=== PATIENT | female | born 1975 | race Caucasian/White ===

== ENCOUNTER 2022-12-07 17:11 | Emergency (ER) | payer OTHER, SELFPAY ==
[2022-12-07 17:23] VITALS: BP 134/63; PULSE 86; RESP 22; TEMP 36.7; O2SAT 100; BMI 33.9
[2022-12-07 17:56] LABS: Add Manual Diff / Slide Review NO; Basophils Absolute Auto 100 /uL (0-100); Basophils Percent Auto 1.2 % (0-2); Eosinophils Absolute Auto 100 /uL (0-450); Eosinophils Percent Auto 1.2 % (2-4); Hematocrit 24.3 % (36-46); Hemoglobin 7.3 g/dL (12.0-16.0); Lymphocytes Absolute Auto 1600 /uL (1100-4500); Lymphocytes Percent Auto 16.1 % (25-40); Mean Corpuscular HGB Conc 30.1 % (30-36); Mean Corpuscular Hemoglobin 18.1 PG (26-34); Mean Corpuscular Volume 60.2 fL (80-100); Monocytes Absolute Auto 800 /uL (0-900); Monocytes Percent Auto 7.7 % (3-14); Neutrophils Absolute Auto 7300 /uL (1500-7000); Neutrophils Percent Auto 73.8 % (50-75); Platelet Count 289 X10^3/uL (150-400); Red Blood Cell Count 4.04 X10^6/uL (4.0-5.2); Red Cell Distribution Width 18.5 % (11.6-14.8); White Blood Cell Count 9.8 X10^3/uL (4.5-11.0)
[2022-12-07 18:06] LABS: Prothrombin Time 11.7 SECONDS (10.1-12.7)
[2022-12-07 18:09] LABS: PTT Partial Thromboplastin Tim 27 SECONDS (26-36)
[2022-12-07 18:11] LABS: Alanine Aminotransferase 26 IU/L (<35); Albumin 4.2 g/dL (3.5-5.0); Albumin Globulin Ratio 1.4 (1.0-2.8); Alkaline Phosphatase 53 U/L (38-126); Aspartate Aminotransferase 21 IU/L (14-36); BUN Creatinine Ratio 14.5 (6-22); Bilirubin Total 0.3 mg/dL (0.2-1.3); Blood Urea Nitrogen 12 mg/dL (7-17); Calcium 8.4 mg/dL (8.4-10.2); Carbon Dioxide 23 mmol/L (22-32); Chloride 104 mmol/L (98-107); Estimated Glomerular Filt Rate > 60 mL/min (>60); Globulin 3.1 g/dL (1.7-4.1); Glucose 96 mg/dL (70-100); HEMOLYSIS < 15 (0-50); Potassium 3.9 mmol/L (3.4-5.1); Sodium 136 mmol/L (137-145); Total Protein 7.3 g/dL (6.3-8.2)
[2022-12-07 18:27] LABS: Hypochromasia 2+; Microcytosis 2+; RBC Morphology S
[2022-12-07 18:51] VITALS: BP 130/71
[2022-12-07] MEDS: PANTOPRAZOLE 40 MG VIAL 80 MG IV (18:52)
[2022-12-07 19:00] VITALS: BP 119/64; PULSE 77; O2SAT 100
[2022-12-07 19:30] VITALS: BP 119/71; PULSE 84; O2SAT 100
[2022-12-07 19:46] VITALS: BP 122/68; PULSE 76; O2SAT 100
[2022-12-07 19:59] LABS: Hematocrit 23.9 % (36-46); Hemoglobin 7.1 g/dL (12.0-16.0)
[2022-12-07 20:00] VITALS: BP 121/72; PULSE 82; O2SAT 100
--- NOTE | 2022-12-07 20:20 | ED_ITS ---
HPI - Recheck/Abnormal Lab/Rx General Chief Complaint: Recheck/Abnormal Lab/Rx Stated Complaint: low h/h, hgb 7 Time Seen by Provider: 12/07/22 18:09 Source: patient Mode of arrival: Ambulatory Limitations: no limitations History of Present Illness HPI narrative: Patient is a 47-year-old female. Was sent here from her primary doctor's office for evaluation of anemia. Patient states she has had anemia in the past. Has had low iron in the past. Has taken iron supplements but does not currently taking any supplements. She states she has had very heavy menstrual cycles. They have become more frequent recently. She is not on any sort of control. She did recently have an upper endoscopy and was diagnosed with gastroesophageal reflux disease. She does not take any blood thinners. Has not had any blood in her stool. She is had a colonoscopy in the past about a year ago. She states she is not having any shortness of breath on exertion. No fatigue. No chest pain. No shortness of breath. No abdominal pain. Related Data Previous Rx's Medication Instructions Recorded docusate sodium 100 mg capsule 100 mg PO DAILY #30 caps 12/07/22 (Colace) ferrous sulfate 325 mg (65 mg 325 mg PO DAILY #30 tabs 12/07/22 iron) tablet (FeroSul) Allergies Allergy/AdvReac Type Severity Reaction Status Date / Time No Known Drug Allergies Allergy Verified 12/07/22 17:46 Review of Systems Review of Systems ROS Unobtainable: All systems reviewed & are unremarkable except as noted in HPI and below Patient History Social History Smoking Status: Never smoker Smoking Status: Never smoker alcohol intake frequency: a few times a month Alcohol type: hard liquor Substance Use Type: does not use Exam Initial Vital Signs Initial Vital Signs: Vital Signs Temperature 98.1 F 12/07/22 17:23 Pulse Rate 86 12/07/22 17:23 Respiratory Rate 22 12/07/22 17:23 Blood Pressure 134/63 12/07/22 17:23 Pulse Oximetry 100 12/07/22 17:23 Oxygen Delivery Method Room Air 12/07/22 17:23 Resp Effort & Inspection: normal respiratory effort Cardio Rate: regular rate GI Inspection: normal to inspection and non-distended Palpation: soft and No tender Neuro General: patient alert, patient awake and moves all extremities Speech: speech normal Extrem General: normal to inspection and capillary refill normal Course Orders Ordered: ED Orders 12/07/22 17:35 Complete Blood Count AUTO DIFF Stat Comprehensive Metabolic Panel Stat PTT Partial Thromboplastin Sandip Stat Prothrombin Time INR Stat Type and Screen Stat 12/07/22 19:46 Hemoglobin and Hematocrit Stat Discontinued Medications Ondansetron HCl (Ondansetron 4 Mg/2 Ml Inj) 4 mg IV NOW PRN PRN Reason: Nausea And Vomiting Ondansetron HCl (Ondansetron 4 Mg Odt) 4 mg SL NOW PRN PRN Reason: Nausea And Vomiting Pantoprazole Sodium (Pantoprazole 40 Mg Vial) 80 mg IV NOW ONE Stop: 12/07/22 17:41 Last Admin: 12/07/22 18:52 Dose: 80 mg Documented By: REY Vital Signs Vital signs: Vital Signs - 8 hr 12/07/22 17:23 12/07/22 18:51 12/07/22 19:00 Temperature 98.1 F Pulse Rate 86 Respiratory Rate 22 Blood Pressure 134/63 130/71 119/64 Pulse Oximetry 100 Oxygen Delivery Method Room Air 12/07/22 19:00 12/07/22 19:30 12/07/22 19:30 Temperature Pulse Rate 77 84 Respiratory Rate Blood Pressure 119/71 Pulse Oximetry 100 100 Oxygen Delivery Method 12/07/22 19:46 12/07/22 19:46 12/07/22 20:00 Temperature Pulse Rate 76 Respiratory Rate Blood Pressure 122/68 121/72 Pulse Oximetry 100 Oxygen Delivery Method 12/07/22 20:00 Temperature Pulse Rate 82 Respiratory Rate Blood Pressure Pulse Oximetry 100 Oxygen Delivery Method MDM - Recheck/Abnormal Lab/Rx Lab Data Attestation: I reviewed the patient's lab results. 12/07/22 19:46 12/07/22 17:35 Labs: Lab Results 12/07/22 12/07/22 12/07/22 Range/Units 17:35 17:35 17:35 WBC 9.8 (4.5-11.0) X10^3/uL RBC 4.04 (4.0-5.2) X10^6/uL Hgb 7.3 L (12.0-16.0) g/dL Hct 24.3 L (36-46) % MCV 60.2 L (80-100) fL MCH 18.1 L (26-34) PG MCHC 30.1 (30-36) % RDW 18.5 H (11.6-14.8) % Plt Count 289 (150-400) X10^3/uL Neut % (Auto) 73.8 (50-75) % Lymph % (Auto) 16.1 L (25-40) % [place] % (Auto) 7.7 (3-14) % Eos % (Auto) 1.2 L (2-4) % Baso % (Auto) 1.2 (0-2) % Neut # (Auto) 7300 H (5438-4840) /uL Lymph # (Auto) 1600 (9174-3036) /uL [place] # (Auto) 800 (0-900) /uL Eos # (Auto) 100 (0-450) /uL Baso # (Auto) 100 (0-100) /uL RBC Morphology S Hypochromasia 2+ H Microcytosis 2+ H PT 11.7 (10.1-12.7) SECONDS INR 1.0 (0.9-1.3) APTT 27 (26-36) SECONDS Sodium 136 L (137-145) mmol/L Potassium 3.9 (3.4-5.1) mmol/L Chloride 104 (98-107) mmol/L Carbon Dioxide 23 (22-32) mmol/L BUN 12 (7-17) mg/dL Creatinine 0.83 (0.52-1.04) mg/dL Estimated GFR > 60 (>60) mL/min BUN/Creatinine Ratio 14.5 (6-22) Glucose 96 (70-100) mg/dL Calcium 8.4 (8.4-10.2) mg/dL Total Bilirubin 0.3 (0.2-1.3) mg/dL AST 21 (14-36) IU/L ALT 26 (<35) IU/L Alkaline Phosphatase 53 (38-126) U/L Total Protein 7.3 (6.3-8.2) g/dL Albumin 4.2 (3.5-5.0) g/dL Globulin 3.1 (1.7-4.1) g/dL Albumin/Globulin Ratio 1.4 (1.0-2.8) Blood Type Antibody Screen 12/07/22 12/07/22 Range/Units 17:35 19:46 WBC (4.5-11.0) X10^3/uL RBC (4.0-5.2) X10^6/uL Hgb 7.1 L (12.0-16.0) g/dL Hct 23.9 L (36-46) % MCV (80-100) fL MCH (26-34) PG MCHC (30-36) % RDW (11.6-14.8) % Plt Count (150-400) X10^3/uL Neut % (Auto) (50-75) % Lymph % (Auto) (25-40) % [place] % (Auto) (3-14) % Eos % (Auto) (2-4) % Baso % (Auto) (0-2) % Neut # (Auto) (0614-8223) /uL Lymph # (Auto) (6477-7453) /uL [place] # (Auto) (0-900) /uL Eos # (Auto) (0-450) /uL Baso # (Auto) (0-100) /uL RBC Morphology Hypochromasia Microcytosis PT (10.1-12.7) SECONDS INR (0.9-1.3) APTT (26-36) SECONDS Sodium (137-145) mmol/L Potassium (3.4-5.1) mmol/L Chloride (98-107) mmol/L Carbon Dioxide (22-32) mmol/L BUN (7-17) mg/dL Creatinine (0.52-1.04) mg/dL Estimated GFR (>60) mL/min BUN/Creatinine Ratio (6-22) Glucose (70-100) mg/dL Calcium (8.4-10.2) mg/dL Total Bilirubin (0.2-1.3) mg/dL AST (14-36) IU/L ALT (<35) IU/L Alkaline Phosphatase (38-126) U/L Total Protein (6.3-8.2) g/dL Albumin (3.5-5.0) g/dL Globulin (1.7-4.1) g/dL Albumin/Globulin Ratio (1.0-2.8) Blood Type O Positive Antibody Screen Negative [facility] Narrative Medical decision making narrative: Patient is anemic but is relatively asymptomatic from it per her reports. She has never had a blood transfusion in the past. 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 She was here for a period of time and a repeat H&H shows relatively no change. She is not tachycardic. Not hypotensive. No indication for emergent blood transfusion although I did tell the patient that she was very close to the threshold where we would recommend it and she is at a level that if she were having symptoms that we would recommend transfusion but I feel that we can hold on this for now. We will start her on iron. Advised that she needed to contact her primary doctor for a follow-up to repeat her blood test to make sure that she continues to have no drop. Patient expressed understanding and agreement with plan. Discharge Plan Departure Patient Disposition: Home Clinical Impression: Anemia Instructions: Anemia Activity Restrictions/Additional Instructions: I recommend that you contact your primary doctor for a follow-up as you are going to need more workup to determine why your anemic. Use the iron supplement has directed. Return to the emergency department for new or worsening symptoms. Prescriptions: New ferrous sulfate [FeroSul] 325 mg (65 mg iron) tablet 325 mg PO DAILY Qty: 30 0RF docusate sodium [Colace] 100 mg capsule 100 mg PO DAILY Qty: 30 0RF Referrals: Darlyn Rose MD [Primary Care Provider] - Stand Alone Forms: Patient Portal/API
== END 2022-12-07 20:26 | disposition home or self-care (01) ==
PROVIDERS: Emergency Medicine; Emergency Provider Emergency Medicine; PCP Student in an Organized Health Care Education/Training Program; Referring Provider Student in an Organized Health Care Education/Training Program
DX: D64.9 Anemia, unspecified (principal)
CPT/HCPCS: 36415; 80053; 85014; 85018; 85025; 85610; 85730; 86850; 86900; 86901; 96374; 99284; C9113